=== PATIENT | female | born 1955 | race Caucasian/White ===

== ENCOUNTER → 2019-12-07 11:09 | Outpatient (CLI) | payer OTHER, SELFPAY ==
--- NOTE | 2019-12-07 | DI.MG.S_ITS ---
BILATERAL DIGITAL SCREENING MAMMOGRAM 3D/2D WITH CAD WITH AUGMENTATION: 12/07/2019 CLINICAL: Routine screening. Comparison is made to exams dated: 12/07/2016 mammogram, 09/10/2012 mammogram - [facility], and 10/22/2008 mammogram - [facility]. There are scattered fibroglandular elements in both breasts. Current study was also evaluated with a Computer Aided Detection (CAD) system. Bilateral breast implants are stable. There are benign intramammary nodes in both breasts. No significant masses, calcifications, or other findings are seen in either breast. There has been no significant interval change. IMPRESSION: There is no mammographic evidence of malignancy. A 1 year screening mammogram is recommended. This exam was interpreted at Station ID: [id number]. NOTE: For mammograms, a report in lay terms will be sent to the patient. Approximately 15% of breast malignancies will not be visualized mammographically. In the management of a palpable breast mass, a negative mammogram must not discourage biopsy of a clinically suspicious lesion. Electronically Signed By: Patrick alvarez/alverto:12/08/2019 06:42:51 letter sent: Normal Exam ACR BI-RADS Category 2: Benign Finding(s) 3342F
== END ==
PROVIDERS: Family Provider Physician Assistant; PCP Physician Assistant; Referring Provider Student in an Organized Health Care Education/Training Program; Visit Provider Student in an Organized Health Care Education/Training Program
DX: Z12.31 Encounter for screening mammogram for malignant neoplasm of breast (principal)
CPT/HCPCS: 77063; 77067

== ENCOUNTER → 2019-12-14 11:43 | Outpatient (CLI) | payer OTHER, SELFPAY ==
--- NOTE | 2019-12-14 11:52 | DIET.PN ---
Dietary Progress Note Assessment: 64y F here to get help managing obesity, HLD, HTN, and GI sx of bloating and belching. Pt grew up with frugal mom, clean [employer], showed love with food. Pt and first went strict vegetarian for 20 y, raised kids this way, no processed foods or refined sugar. Remarried and started eating meat, but now , so reverted to mostly pescatarian diet. Went through menopause 20y ago, noticed weight creeping up for past 5y, still having hot flashes. Has had considerable stress as well as injury (broken ankle, two knee replacements), has sedentary job at desk. Pt hx includes biking 50+miles, walking 6 miles daily, etc prior to injury. HT: 5'11 WT: 240# UBW: 165# (185# in 40s) Usual Day: wakes 430am no alarm 5am breakfast: 1c coffee, 2T whole milk 1 egg, 1 piece toast (pb, sometimes butter) or 1/2c raw oatmeal, cooked c dried cranberries (has an hour to work with here) 8am works, sits at desk most of the day drinks water at desk has hour for lunch 1pm: pack hummus c celery and an apple, occasionally salmon c salad done working at 5pm Dinner (530): salmon, salad, oatmeal, egg sandwich, sweet potato or squash then no snacks until bedtime goes to bed at 9pm GI sx caused by: cramps from seeds, lentils, whole grains burping, belching, and bloating, a lot of fullness, not much appetite 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 Pt does not eat out of boredom or for emotional reasons. Interventions: 1. Discussed meal timing and content for health 2. Discussed physical activity goals 3. Discussed further workup to update labs and check for other causes of current sx (SIBO, thyroid?) Patient Goals: 1. Falguni will stop eating at 530pm and continue fasting until 630am most days of the week. On weekdays will either go on 1h walk or do max dolphin trainer to tolerance before breakfast. 2. Falguni will double volume of lunch meal with sensible choices (double hummus/double veg). 3. To promote weight loss, Falguni will go for bike ride or try [employer] membership for 60 minutes 5 days per week after work. Monitoring/Evaluations: Recc testing thyroid r/t several positive sx, recc GI workup c sx of SIBO (small intestine bacterial overgrowth)
== END ==
PROVIDERS: Family Provider Physician Assistant; PCP Physician Assistant; Referring Provider Student in an Organized Health Care Education/Training Program; Visit Provider Student in an Organized Health Care Education/Training Program
DX: E66.9 Obesity, unspecified (principal); E78.5 Hyperlipidemia, unspecified; I10 Essential (primary) hypertension; R14.0 Abdominal distension (gaseous); Z71.3 Dietary counseling and surveillance
CPT/HCPCS: 97802

== ENCOUNTER → 2023-10-28 07:39 | Outpatient (CLI) | payer MEDICARE, OTHER, SELFPAY ==
--- NOTE | 2023-10-28 07:41 | DI.MG.S_ITS ---
BILATERAL DIGITAL SCREENING MAMMOGRAM 3D/2D WITH CAD WITH AUGMENTATION: 10/28/2023 CLINICAL: Routine screening. Comparison is made to exams dated: 12/07/2019 mammogram, 12/07/2016 mammogram, and 09/10/2012 mammogram - [facility]. There are scattered areas of fibroglandular density in both breasts (category b / 25%-50% glandular tissue). Current study was also evaluated with a Computer Aided Detection (CAD) system. Bilateral breast implants are stable. No significant masses, calcifications, or other findings are seen in either breast. There has been no significant interval change. IMPRESSION: NEGATIVE There is no mammographic evidence of malignancy. A 1 year screening mammogram is recommended. Based on the Tyrer Cuzick model (a risk assessment model) the patient's lifetime risk is 4.4% and her 10 year risk is 2.2%. According to the ACR, ACS, and NCCN guidelines, an annual breast MRI exam along with mammogram is recommended if the patient's lifetime risk is 20% or greater. This exam was interpreted at Station ID: [id number]. NOTE: For mammograms, a report in lay terms will be sent to the patient. Approximately 15% of breast malignancies will not be visualized mammographically. In the management of a palpable breast mass, a negative mammogram must not discourage biopsy of a clinically suspicious lesion. Electronically Signed By: Alysa jones/alverto:10/28/2023 13:34:37 letter sent: Normal Exam ACR BI-RADS Category 1: Negative 3341F
--- NOTE | 2023-10-28 07:41 | DI.RAD.S_ITS ---
Bone Density Report Name: BEE DAMIAN Age: 68 Sex: Female Ethnicity: White Date of : 1955 Indication: postmenopausal; screening for osteoporosis; prior fracture; Referring Provider: TRUDI RUSH Study: Bone densitometry was performed. Exam Date: October 28, 2023 Accession number: [id number] Bone Density: Region BMD T-score Z-score Classification AP Spine(L1, L3, L4) 1.193 1.3 3.2 Normal Femoral Neck (Left) 0.918 0.6 2.2 Normal Total Hip (Left) 1.097 1.3 2.6 Normal Femoral Neck (Right) 0.800 -0.4 1.2 Normal Total Hip (Right) 0.964 0.2 1.5 Normal Total Hip Mean 1.031 0.8 2.1 Normal World Health Organization criteria for BMD impression classify patients as: Normal (T-score at or above -1.0), Osteopenia (T-score between -1.0 and -2.5), or Osteoporosis (T-score at or below -2.5). 10-year Fracture Risk: FRAX not reported because: All T-scores for Spine Total, Hip Total, Femoral Neck at or above -1.0 Prior hip or vertebral fracture Impression: The patient has normal bone mass. The patient has risk factors, including: previous fracture. Discussion: INCREASED RISK OF FRACTURE DUE TO HISTORY OF FRACTURE. The patient's previous fracture puts the patient at high risk of a future fracture. In untreated patients, the risk of osteoporotic fracture increases approximately two-fold for each 1.0 SD decrease in T-score. Low bone density is not the only risk factor for fracture; also consider factors such as patient's age, frailty or poor health, risk of falling, risk of injury, previous osteoporotic fracture, family history of osteoporosis, cigarette smoking, low body weight, etc. Not everyone with a low trauma fracture has osteoporosis; osteomalacia and other metabolic bone disorders should also be considered. Patients who have osteoporosis should be evaluated for specific diseases and conditions (secondary causes) that may cause or contribute to bone loss and fracture risk. National Osteoporosis Foundation (NOF) recommends pharmacologic intervention for patients with a prior hip or vertebral fracture regardless of BMD T-score. The patient should follow a healthful lifestyle (good nutrition with adequate calcium and vitamin D, and appropriate weight-bearing exercise). Follow-Up: Consider a repeat BMD and Vertebral Fracture Assessment (VFA) exam in 2 years or sooner if medically necessary, to reassess this patient's status. Reported by: QUENTIN DUBOSE M.D. on 10/28/2023 8:51:00 AM.
== END ==
LOC: MAMMO 07:39
PROVIDERS: Family Provider Physician Assistant; PCP Physician Assistant; Referring Provider Student in an Organized Health Care Education/Training Program; Visit Provider Student in an Organized Health Care Education/Training Program
DX: Z12.31 Encounter for screening mammogram for malignant neoplasm of breast (principal); Z13.820 Encounter for screening for osteoporosis; Z78.0 Asymptomatic menopausal state; Z87.311 Personal history of (healed) other pathological fracture; R92.323 Mammographic fibroglandular density, bilateral breasts
CPT/HCPCS: 77063; 77067; 77080